=== PATIENT | female | born 1990 | race Caucasian/White ===

== ENCOUNTER 2018-06-14 12:22 | Observation (INO) | payer OTHER ==
[~2018-06-14] VITALS: Ht 162 cm; Wt 96.2 kg
[2018-06-14] MEDS ORDERED: LEVO100 PO (12:59)
[2018-06-14 14:15] VITALS: BP 121/68
== END 2018-06-14 14:35 | disposition home or self-care (01) ==
LOC: 4S 12:22
PROVIDERS: ADMIT Obstetrics & Gynecology; ATTEND Obstetrics & Gynecology
DX: O62.9 Abnormality of forces of labor, unspecified (principal); O46.93 Antepartum hemorrhage, unspecified, third trimester; Z3A.37 37 weeks gestation of pregnancy
CPT/HCPCS: 81002; G0378

== ENCOUNTER 2018-06-30 19:41 | Inpatient (IN) | payer OTHER ==
[~2018-06-30] VITALS: Ht 165.1 cm; Wt 99.1 kg
[~2018-06-30 19:41] MED LIST: LEVO100 PO
[2018-06-30] MEDS ORDERED: FentaNYL CITRATE-PF 100 MCG/2 ML VIAL IVP PRN (20:00)
[2018-06-30] MEDS ORDERED: RINGERS SOLUTION,LACTATED 1,000 ML IV SCH ×2 (20:00→21:44)
[2018-06-30] MEDS ORDERED: OXYTOCIN 30 UNITS/LACT RINGERS 500 ML IV ONE (20:00)
[2018-06-30] MEDS ORDERED: OXYGEN THERAPY IH SCH (20:00)
[2018-06-30] MEDS ORDERED: METOCLOPRAMIDE HCL 5 MG/ML 2 ML VIAL IVP PRN (20:00)
[2018-06-30] MEDS ORDERED: CITRIC ACID/SODIUM CITRATE 30 ML SOLUTION UDCUP PO PRN (20:00)
[2018-06-30 20:31] VITALS: BP 139/80
[2018-06-30 20:35] LABS: BASOPHILS % (AUTO) 0.5 % (0.0-2.0); EOSINOPHILS % (AUTO) 2.5 % (1.0-6.0); HEMATOCRIT 39.6 % (36-46); HEMOGLOBIN 13.6 g/dL (12.0-16.0); LYMPHOCYTES # (AUTO) 2.4 K/uL (1.0-4.8); LYMPHOCYTES % (AUTO) 21.6 % (22.0-44.0); MEAN CORPUSCULAR HEMOGLOBIN 31.2 pg (26.0-34.0); MEAN CORPUSCULAR HGB CONC 34.4 G/dL (31.0-37.0); MEAN CORPUSCULAR VOLUME 91 fL (80-100); MONOCYTES # (AUTO) 1.1 K/uL (0.1-1.0); MONOCYTES % (AUTO) 9.7 % (2.0-9.0); NEUTROPHILS # (AUTO) 7.3 K/uL (1.8-7.7); NEUTROPHILS % (AUTO) 65.7 % (40.0-70.0); PLATELET COUNT (AUTO)-OB 284 K/uL (150-450); RED BLOOD CELL COUNT(AUTO) 4.36 MIL/uL (4.00-5.20); RED CELL DISTRIBUTION WIDTH 14.5 % (11.5-14.5)
[2018-06-30] MEDS ORDERED: PNV11TAB PO (21:08)
[2018-06-30] MEDS ORDERED: LEVO100T4 PO (21:09)
[2018-06-30] MEDS ORDERED: AMPI500C68 PO (21:10)
[2018-06-30] MEDS ORDERED: [UNRECOGNIZED DRUG - OTHER] PO (21:14)
[2018-06-30] MEDS: MISOPROSTOL 25 MCG TABLET PO SCH (21:58)
[2018-06-30] MEDS: AMPICILLIN TRIHYDRATE 500 MG CAPSULE PO SCH (23:40)
[2018-07-01] MEDS: MISOPROSTOL 25 MCG TABLET PO SCH (02:20)
[2018-07-01] MEDS: RINGERS SOLUTION,LACTATED 1,000 ML IV PRN ×2 (04:38→05:46)
[2018-07-01] MEDS ORDERED: OXYTOCIN 30 UNITS/LACT RINGERS 500 ML IV PRN (05:15)
[2018-07-01] MEDS ORDERED: ROPIVACAINE HCL/PF 0.2% 100 ML ED ONE (05:25)
[2018-07-01] MEDS ORDERED: ONDANSETRON HCL 4 MG/2 ML VIAL IVP PRN (06:30)
[2018-07-01] MEDS ORDERED: DiphenhydrAMINE HCL 50 MG/ML VIAL IVP PRN (06:30)
[2018-07-01] MEDS ORDERED: LEVOTHYROXINE SODIUM 100 MCG TABLET PO SCH (06:30)
[2018-07-01] MEDS ORDERED: ROPIVACAINE HCL/PF 0.2% 100 ML ED PRN (06:30)
[2018-07-01] MEDS: AMPICILLIN TRIHYDRATE 500 MG CAPSULE PO SCH ×2 (08:57→20:04)
[2018-07-01] MEDS ORDERED: RINGERS SOLUTION,LACTATED 1,000 ML IV ONE (13:42)
[2018-07-01] MEDS ORDERED: OxyCODONE HCL/ACETAMINOPHEN 5-325 MG TABLET PO PRN ×2 (13:45)
[2018-07-01] MEDS ORDERED: MEASLES/MUMPS/RUBELLA VACCINE, LIVE 0.5 ML/VIAL SQ ONE (13:45)
[2018-07-01] MEDS ORDERED: GLYCERIN/WITCH HAZEL LEAF 40 PADS JAR TP PRN (13:45)
[2018-07-01] MEDS ORDERED: LANOLIN 7 GM OINTMENT TP PRN (13:45)
[2018-07-01] MEDS ORDERED: BENZOCAINE 20%/MENTHOL 56 GM SPRAY CANISTER TP PRN (13:45)
[2018-07-01] MEDS: IBUPROFEN 600 MG TABLET PO PRN (16:38)
[2018-07-01] MEDS: MAGNESIUM HYDROXIDE SUSPENSION 30 ML UDCUP PO SCH (20:04)
[2018-07-02] MEDS: AMPICILLIN TRIHYDRATE 500 MG CAPSULE PO SCH ×2 (04:00→12:08)
[2018-07-02] MEDS: IBUPROFEN 600 MG TABLET PO PRN ×2 (04:07→08:37)
[2018-07-02 06:25] LABS: BASOPHILS % (AUTO) 0.5 % (0.0-2.0); EOSINOPHILS % (AUTO) 2.1 % (1.0-6.0); HEMATOCRIT 37.7 % (36-46); HEMOGLOBIN 13.1 g/dL (12.0-16.0); LYMPHOCYTES # (AUTO) 2.7 K/uL (1.0-4.8); LYMPHOCYTES % (AUTO) 21.9 % (22.0-44.0); MEAN CORPUSCULAR HEMOGLOBIN 31.6 pg (26.0-34.0); MEAN CORPUSCULAR HGB CONC 34.7 G/dL (31.0-37.0); MEAN CORPUSCULAR VOLUME 91 fL (80-100); MONOCYTES # (AUTO) 0.9 K/uL (0.1-1.0); MONOCYTES % (AUTO) 7.2 % (2.0-9.0); NEUTROPHILS # (AUTO) 8.4 K/uL (1.8-7.7); NEUTROPHILS % (AUTO) 68.3 % (40.0-70.0); PLATELET COUNT (AUTO)-OB 260 K/uL (150-450); RED BLOOD CELL COUNT(AUTO) 4.15 MIL/uL (4.00-5.20); RED CELL DISTRIBUTION WIDTH 14.5 % (11.5-14.5)
[2018-07-02] MEDS: MAGNESIUM HYDROXIDE SUSPENSION 30 ML UDCUP PO SCH (08:37)
[2018-07-02] MEDS ORDERED: IBUP-2071 PO (09:55)
[2018-07-02] MEDS ORDERED: DSS100 PO (09:56)
== END 2018-07-02 13:45 | disposition home or self-care (01) | DRG 807 ==
LOC: OBSVTOIN 19:41 → 4S 19:41
PROVIDERS: ADMIT Obstetrics & Gynecology; ATTEND Obstetrics & Gynecology
PROC: 10E0XZZ Delivery of Products of Conception, External Approach (ICD-10-PCS; principal; 2018-07-01)
PROC: 3E0R3BZ Introduction of Anesthetic Agent into Spinal Canal, Percutaneous Approach (ICD-10-PCS; 2018-07-01)
PROC: 00HU33Z Insertion of Infusion Device into Spinal Canal, Percutaneous Approach (ICD-10-PCS; 2018-07-01)
DX: O99.284 Endocrine, nutritional and metabolic diseases complicating childbirth (principal); Z37.0 Single live birth; E03.9 Hypothyroidism, unspecified; Z3A.39 39 weeks gestation of pregnancy
CPT/HCPCS: 86850; 86900; 86901; J2590; J2795; J7120